=== PATIENT | male | born 1955 | race Caucasian/White ===

== ENCOUNTER 2017-05-25 11:39 | Day surgery (SDC) | payer BC ==
[2017-05-22 13:50] LABS: BASOPHILS % (AUTO) 0.5 % (0-1); EOSINOPHILS # (AUTO) 0.1 X10'3 (0-0.9); EOSINOPHILS % (AUTO) 1.9 % (0-6); LYMPHOCYTES # (AUTO) 1.5 X10'3 (1.1-4.8); LYMPHOCYTES % (AUTO) 30.4 % (21-51); MEAN CORPUSCULAR HEMOGLOBIN 30.6 PG (27.0-31.0); MEAN CORPUSCULAR HGB CONC 34.6 % (33.0-36.5); MEAN CORPUSCULAR VOLUME 88.5 FL (78-98); MEAN PLATELET VOLUME 7.6 FL (7.4-10.4); MONOCYTES # (AUTO) 0.6 X10'3 (0-0.9); MONOCYTES % (AUTO) 11.8 % (2-12); NEUTROPHILS # (AUTO) 2.7 X10'3 (1.8-7.7); NEUTROPHILS % (AUTO) 55.4 % (42-75); PRE OP HEMATOCRIT 44.8 % (42.0-52.0); PRE OP HEMOGLOBIN 15.5 g/dL (14.0-17.9); PRE OP PLATELET COUNT 309 X10'3 (140-440); RED BLOOD COUNT 5.06 X10'6 (4.70-6.10); RED CELL DISTRIBUTION WIDTH 13.7 % (11.5-14.5)
[2017-05-22 14:05] LABS: ALBUMIN 3.9 G/DL (3.4-5.0); ALBUMIN/GLOBULIN RATIO 1.2 (1.1-1.5); ALKALINE PHOSPHATASE 57 IU/L (46-116); BLOOD UREA NITROGEN 24 MG/DL (7-18); CALCIUM 9.9 MG/DL (8.5-10.1); CHLORIDE 106 MMOL/L (99-107); PRE OP ALT 38 U/L (30-65); PRE OP ANION GAP 7 (8-16); PRE OP AST 23 U/L (10-37); PRE OP BILIRUB, TOTAL 0.5 MG/DL (0.0-1.0); PRE OP GLUCOSE 106 MG/DL (70-104); PRE OP POTASSIUM 3.9 MMOL/L (3.4-5.1); PRE OP SODIUM 146 MMOL/L (135-145); TOTAL CARBON DIOXIDE 33.3 MMOL/L (24-32); TOTAL PROTEIN 7.2 G/DL (6.4-8.2); eGFR 61 ML/MIN
[~2017-05-25] VITALS: Ht 175.3 cm; Wt 88.0 kg
[2017-05-25] VITALS (7 sets, daily range): BP systolic 130–162; BP diastolic 49–87
[~2017-05-25 11:39] MED LIST: ATEN50TA PO; BUPIVAcaine 0.5% inj/PF 0 ML ONE; DOCUMENT DATE & TIME OF BETA-BLOCKER PO ONE; FENO145T36 PO; FLO0.4C PO; HYDR25TA4 PO; LOSA25TA96 PO; MESSAGE TO NURSING IV ONE; VANCOMYCIN INJ 1000 MG in NORMAL SALINE 250ml IV.SOLN IV ONE; ceFAZolin 1000mg inj ONE; clindamycin 600mg/D5W 50ml 50 ML IV ONE; famotidine 20mg tablet PO ONE; ringers solution, lacted 1,000 ML IV SCH
[2017-05-25] MEDS ORDERED: midazolam 2 mg/2 ml injection ONE ×2 (13:21)
[2017-05-25] MEDS ORDERED: fentaNYL/PF 50MCG/1 ML 2ML syringe ONE ×2 (13:21→13:22)
[2017-05-25] MEDS ORDERED: propofol inj 20 ML IV ONE (13:24)
[2017-05-25] MEDS ORDERED: LIDOcaine 2% (20mg/ml) 5ml vial ONE (13:24)
[2017-05-25] MEDS ORDERED: BUPIVAcaine/PF 2.5 mg/ml (0.25%) 30ml vial ONE (13:26)
[2017-05-25] MEDS ORDERED: BUPIVAcaine 0.5% inj/PF 30 ML ONE (13:26)
[2017-05-25] MEDS ORDERED: sevoflurane 250ml liquid IH ONE (13:30)
[2017-05-25] MEDS ORDERED: dexamethasone sod phosphate 4mg/ml inj. ONE (14:15)
[2017-05-25] MEDS ORDERED: ringers solution, lacted 1,000 ML IV SCH (14:23)
[2017-05-25] MEDS ORDERED: proCHLORperazine 10 MG/2 ml inj IV PRN (14:25)
[2017-05-25] MEDS ORDERED: morphine 2 MG/ML inj. syringe IV PRN ×2 (14:25)
[2017-05-25] MEDS ORDERED: meperidine/PF 50mg/ml syringe IV PRN ×3 (14:25)
[2017-05-25] MEDS ORDERED: ePHEDrine 50MG/ML INJ. ONE (14:25)
[2017-05-25] MEDS ORDERED: ondansetron/PF 4mg/2ml inj IV PRN (14:25)
[2017-05-25] MEDS ORDERED: ondansetron/PF 4mg/2ml inj ONE (15:02)
[2017-05-25] MEDS ORDERED: epiNEPHrine 1 mg/ml inj ONE (15:04)
== END 2017-05-25 16:23 | disposition home or self-care (01) ==
LOC: PAS 11:39
PROVIDERS: ATTEND Orthopaedic Surgery
DX: S46.211A Strain of muscle, fascia and tendon of other parts of biceps, right arm, initial encounter (principal); I10 Essential (primary) hypertension; G89.18 Other acute postprocedural pain; Z88.1 Allergy status to other antibiotic agents; Z98.890 Other specified postprocedural states; Z72.89 Other problems related to lifestyle; Z87.891 Personal history of nicotine dependence; Z79.899 Other long term (current) drug therapy; X58.XXXA Exposure to other specified factors, initial encounter; Y93.89 Activity, other specified; Y92.89 Other specified places as the place of occurrence of the external cause; Y99.8 Other external cause status
CPT/HCPCS: 24342; 36415; 64415; 80053; 85025; A4565; A6449; J0171; J0690; J1100; J2001; J2250; J2405; J2704; J3010; J3370; J3490; J7120; L8699; A7000

== ENCOUNTER 2018-07-22 06:40 | Day surgery (SDC) | payer BC ==
[~2018-07-22] VITALS: Ht 175.3 cm; Wt 104.3 kg
[2018-07-22] VITALS (20 sets, daily range): BP systolic 126–176; BP diastolic 71–108
[~2018-07-22 06:40] MED LIST changes: -BUPIVAcaine 0.5% inj/PF 0 ML ONE; -DOCUMENT DATE & TIME OF BETA-BLOCKER PO ONE; -MESSAGE TO NURSING IV ONE; -VANCOMYCIN INJ 1000 MG in NORMAL SALINE 250ml IV.SOLN IV ONE; -ceFAZolin 1000mg inj ONE; -clindamycin 600mg/D5W 50ml 50 ML IV ONE; -famotidine 20mg tablet PO ONE; -ringers solution, lacted 1,000 ML IV SCH
[2018-07-22] MEDS ORDERED: normal saline 1000ml 1,000 ML IV SCH (06:55)
[2018-07-22] MEDS ORDERED: FURO80TA3 PO (07:21)
[2018-07-22] MEDS ORDERED: ROSU20TA2 PO (07:21)
[2018-07-22] MEDS ORDERED: GLUC100017 PO (07:21)
[2018-07-22] MEDS ORDERED: CHOL2000 PO (07:21)
[2018-07-22] MEDS ORDERED: OMEG-82 PO (07:21)
[2018-07-22] MEDS ORDERED: MULT-1085 PO (07:21)
[2018-07-22] MEDS ORDERED: RED600TA PO (07:21)
[2018-07-22] MEDS ORDERED: LISI-604 PO (07:21)
[2018-07-22 07:28] LABS: BASOPHILS # (AUTO) 0.1 X10'3 (0-0.2); BASOPHILS % (AUTO) 1.1 % (0-1); EOSINOPHILS # (AUTO) 0.3 X10'3 (0-0.9); EOSINOPHILS % (AUTO) 4.9 % (0-6); HEMATOCRIT 32.4 % (42.0-52.0); HEMOGLOBIN 11.3 g/dl (14.0-17.9); LYMPHOCYTES # (AUTO) 1.5 X10'3 (1.1-4.8); MEAN CORPUSCULAR HEMOGLOBIN 30.2 PG (27.0-31.0); MEAN CORPUSCULAR HGB CONC 34.9 g/dL (33.0-36.5); MEAN CORPUSCULAR VOLUME 86.7 FL (78-98); MEAN PLATELET VOLUME 7.3 FL (7.4-10.4); MONOCYTES # (AUTO) 0.7 X10'3 (0-0.9); MONOCYTES % (AUTO) 13.1 % (2-12); NEUTROPHILS # (AUTO) 2.9 X10'3 (1.8-7.7); NEUTROPHILS % (AUTO) 53.9 % (42-75); PLATELET COUNT 315 X10'3 (140-440); RED BLOOD COUNT 3.73 X10'6 (4.70-6.10); WHITE BLOOD COUNT 5.4 X10'3 (4.5-11.0)
[2018-07-22 07:51] LABS: ALBUMIN 0.6 G/DL (3.4-5.0); ANION GAP 7 (8-16); BLOOD UREA NITROGEN 39 MG/DL (7-18); BUN/CREATININE RATIO 28.5 (5.4-32.0); CALCIUM 7.3 MG/DL (8.5-10.1); CHLORIDE 114 MMOL/L (99-107); CREATININE 1.37 MG/DL (0.60-1.10); GLUCOSE 92 MG/DL (70-104); SODIUM 148 MMOL/L (135-145); TOTAL CARBON DIOXIDE 27.2 MMOL/L (24-32); eGFR 52 ML/MIN
[2018-07-22 07:53] LABS: POTASSIUM 2.9 MMOL/L (3.5-5.1)
[2018-07-22 08:10] LABS: INR 1.1 INR
[2018-07-22] MEDS ORDERED: potassium Cl 20 mEq SR tablet PO PRN (08:20)
[2018-07-22] MEDS ORDERED: midazolam 2 mg/2 ml injection IV PRN (08:40)
[2018-07-22] MEDS ORDERED: LIDOcaine 1%/PF 5ML 10 MG/ML VIAL SQ ONE (08:40)
[2018-07-22] MEDS ORDERED: fentaNYL/PF 50MCG/1 ML 2ML syringe IV PRN (08:40)
[2018-07-22] MEDS ORDERED: LIDOcaine 1%/PF 5ML 10 MG/ML VIAL ONE (08:47)
[2018-07-22] MEDS ORDERED: fentaNYL/PF 50MCG/1 ML 2ML syringe ONE (08:48)
[2018-07-22] MEDS ORDERED: midazolam 2 mg/2 ml injection ONE (08:48)
== END 2018-07-22 11:45 | disposition home or self-care (01) ==
LOC: SSTAY O 06:40
PROVIDERS: ATTEND Radiology Diagnostic Radiology
DX: R80.9 Proteinuria, unspecified (principal); I12.9 Hypertensive chronic kidney disease with stage 1 through stage 4 chronic kidney disease, or unspecified chronic kidney disease; N18.3 Chronic kidney disease, stage 3 (moderate); E78.5 Hyperlipidemia, unspecified; Z88.6 Allergy status to analgesic agent; Z88.8 Allergy status to other drugs, medicaments and biological substances; Z79.899 Other long term (current) drug therapy; Z98.890 Other specified postprocedural states
CPT/HCPCS: 36415; 50200; 77012; 80048; 85025; 85610; 99152; 99153; J2001; J2250; J3010; J7030